=== PATIENT | female | born 1950 | race Caucasian/White ===

== ENCOUNTER → 2016-12-10 | Outpatient (CLI) | payer BC ==
[~2016-12-10] MED LIST: DARVOCET N 1001 TAB PO; FAMILY PHARMAC0.4 MG PO; HYDROCHLOROTHIA25 MG PO; HYDROCODONE; MOTRIN800 MG PO; NEURONTIN400 MG PO; NEURONTIN600 MG PO; NEURONTIN800 MG PO; PRILOSEC20 MG PO; ROBAXIN750 MG PO; SYNTHROID0.025 MG PO; VOLTAREN50 M1 PO
[2016-12-10 13:51] LABS: HEMATOCRIT 43.3 % (37.0-47.0); HEMOGLOBIN 14.6 g/dl (12.0-16.0); MEAN CELL VOLUME 105.6 fl (81.0-99.0); MEAN CORPUSCULAR HGB 35.6 pg (27.0-31.0); MEAN CORPUSCULAR HGB CONC 33.7 g/dl (33.0-37.0); RED BLOOD COUNT 4.1 10*6/uL (4.10-5.10); RED CELL DISTRI WIDTH 12.7 % (0-14.5); WHITE BLOOD COUNT 5.6 10*3/uL (4.8-10.8)
[2016-12-10 14:14] LABS: ALBUMIN 3.7 gm/dl (3.1-4.5); BILIRUBIN, TOTAL 0.4 mg/dl (0.2-1.0); BUN 8 mg/dl (7-24); CARBON DIOXIDE 27 mmol/L (21-32); CHLORIDE 100 mmol/L (98-107); CHOLESTEROL 227 mg/dL (<200); EST GLOM FILT AFRICAN AMERICAN > 60 ml/min; GLUCOSE 97 mg/dL (65-99); HDL CHOLESTEROL 44 mg/dl (40-60); LDL CHOLESTEROL 115 mg/dL (9-159); POTASSIUM 3.6 mmol/L (3.5-5.1); SGOT/AST 32 IU/L (3-35); SGPT/ALT 21 U/L (12-78); SODIUM 136 mmol/L (136-145); TOTAL PROTEIN 8.7 gm/dL (6.4-8.2); TRIGLYCERIDES 341 mg/dl (<150); VLDL CHOLESTEROL 68 mg/dL (6-40)
[2016-12-10 14:15] LABS: ALKALINE PHOSPHATASE 88 U/L (45-117)
== END | disposition home or self-care (01) ==
LOC: LAB 13:07 → US 13:07
PROVIDERS: Family Medicine
DX: J44.9 Chronic obstructive pulmonary disease, unspecified (principal); I51.7 Cardiomegaly; E55.9 Vitamin D deficiency, unspecified; E78.00 Pure hypercholesterolemia, unspecified; R53.83 Other fatigue; J40 Bronchitis, not specified as acute or chronic; R60.0 Localized edema; R91.8 Other nonspecific abnormal finding of lung field; Q25.46 Tortuous aortic arch; J90 Pleural effusion, not elsewhere classified

== ENCOUNTER → 2016-12-26 | Outpatient (CLI) | payer BC | END | disposition home or self-care (01) | LOC: RAD 16:24 | DX: J18.9 Pneumonia, unspecified organism (principal); R05 Cough ==

== ENCOUNTER 2017-02-21 09:45 | Emergency (ER) | payer BC ==
[~2017-02-21] VITALS: Wt 77.1 kg
[2017-02-21 09:54] VITALS: BP 145/79
[2017-02-21] MEDS ORDERED: GABAPENTIN600 MG PO (09:58)
[2017-02-21] MEDS ORDERED: PAMELOR50 MG PO (09:59)
[2017-02-21] MEDS ORDERED: CEPHALEXIN500 M1 PO (12:03)
[2017-02-21] MEDS ORDERED: BACTRIM DS 8001 TA1 PO (12:03)
== END 2017-02-21 12:35 | disposition home or self-care (01) ==
LOC: ED 09:45
DX: S91.109A Unspecified open wound of unspecified toe(s) without damage to nail, initial encounter (principal); L03.115 Cellulitis of right lower limb; Z79.899 Other long term (current) drug therapy; X58.XXXA Exposure to other specified factors, initial encounter; Y93.89 Activity, other specified; Y92.9 Unspecified place or not applicable; Y99.9 Unspecified external cause status

== ENCOUNTER → 2017-02-26 | Outpatient (CLI) | payer BC ==
[~2017-02-26] MED LIST changes: +BACTRIM DS 8001 TA1 PO; +CEPHALEXIN500 M1 PO; +GABAPENTIN600 MG PO; +PAMELOR50 MG PO
== END ==
LOC: WOUNDCARE 04:16
DX: L97.512 Non-pressure chronic ulcer of other part of right foot with fat layer exposed (principal); G62.9 Polyneuropathy, unspecified

== ENCOUNTER → 2017-02-26 | Outpatient (CLI) | payer BC ==
[2017-02-26 09:58] LABS: BASO # 0.1 10*3/uL (0.0-0.1); BASO % 1.1 % (0.0-1.0); EOS # 0.2 10*3/uL (0.0-0.4); EOS % 2.8 % (1.0-4.0); HEMOGLOBIN 12.5 g/dl (12.0-16.0); LYMPH # 1.9 10*3/uL (1.3-4.4); LYMPH % 35.6 % (27.0-41.0); MEAN CELL VOLUME 107.9 fl (81.0-99.0); MEAN CORPUSCULAR HGB 36.4 pg (27.0-31.0); MEAN CORPUSCULAR HGB CONC 33.8 g/dl (33.0-37.0); MEAN PLATELET VOLUME 8.9 fl (9.6-12.3); MONO # 0.5 10*3/uL (0.1-1.0); MONO % 9.8 % (3.0-9.0); NEUT # 2.7 10*3/uL (2.3-7.9); NEUT % 50.3 % (47.0-73.0); NUCLEATED RED BLOOD CELL 0.1 10*3/uL (0.0-0.0); NUCLEATED RED BLOOD CELL 0.9 % (0.0-0.0); PLATELET COUNT AUTOMATED 178 10*3/uL (130-400); RED BLOOD COUNT 3.43 10*6/uL (4.10-5.10); RED CELL DISTRI WIDTH 15.4 % (0-14.5); WHITE BLOOD COUNT 5.3 10*3/uL (4.8-10.8)
[2017-02-26 10:27] LABS: ALBUMIN 3.9 gm/dl (3.1-4.5); ALKALINE PHOSPHATASE 76 U/L (45-117); BILIRUBIN, TOTAL 1.3 mg/dl (0.2-1.0); BUN 9 mg/dl (7-24); CARBON DIOXIDE 26 mmol/L (21-32); CHLORIDE 102 mmol/L (98-107); EST GLOM FILT AFRICAN AMERICAN > 60 ml/min; GLUCOSE 106 mg/dL (65-99); POTASSIUM 4.2 mmol/L (3.5-5.1); SGOT/AST 34 IU/L (3-35); SGPT/ALT 22 U/L (12-78); SODIUM 137 mmol/L (136-145); TOTAL PROTEIN 8.3 gm/dL (6.4-8.2)
[2017-02-26 10:36] LABS: HEMOGLOBIN A1c 5.2 % (4.8-5.6)
== END | disposition home or self-care (01) ==
LOC: LAB 09:38
PROVIDERS: Podiatrist Foot & Ankle Surgery
DX: L97.514 Non-pressure chronic ulcer of other part of right foot with necrosis of bone (principal); R73.09 Other abnormal glucose

== ENCOUNTER → 2017-03-06 | Outpatient (CLI) | payer BC | END | disposition home or self-care (01) | LOC: US 12:19 | DX: S91.104A Unspecified open wound of right lesser toe(s) without damage to nail, initial encounter (principal); I73.9 Peripheral vascular disease, unspecified; X58.XXXA Exposure to other specified factors, initial encounter; Y93.89 Activity, other specified; Y92.89 Other specified places as the place of occurrence of the external cause; Y99.8 Other external cause status ==

== ENCOUNTER → 2017-03-12 | Outpatient (CLI) | payer BC ==
--- NOTE | ~2017-03-12 | PR ---
[place], [place] PROGRESS NOTE NAME: LIBERTAD BALDERAS [facility] #: [id number] UNIT #: [id number] ROOM: DOCTOR: PETAR ArreolaBETITO BIRTHDATE: [birth year] DOS: 03/12/2017 SUBJECTIVE: The patient was seen for the first time 2 weeks ago, she had been referred to us for a chronic ulcer of the second digit of the right foot on the dorsal aspect. She apparently had a wound secondary to rubbing from her steel-toed boots. The blister broke and eventually causing an open wound that was draining yellow drainage and had some sign of cellulitis. She was seen for the first time 2 weeks ago, the wound looked pretty clean at that time, she had been on antibiotics; however, the toe was erythematous and swollen when she did see us last time. She was asked to use Aquacel Ag Rope as well as a 2 x 2 tubular netting over the area, had arterial Dopplers done, which were unremarkable. She comes in today without any specific complaints. She normally wears her tennis shoes. She has not used her steel toed boots at work since we gave her a prescription regarding not wearing those specific shoes while she is at work. She comes in without any specific complaints. She has not noticed any fevers or chills. There is no change in drainage. She does not complain of any significant amount of pain. The wound itself is looking smaller at 0.1 x 0.3 x 0.2, however, there does seem to be more callus around it and there is some area of undermining starting at the 12 o'clock position to the 1 o'clock position, maximum depth of 0.2. The toe itself still appears moderately swollen in comparison to the rest of her toes that it is slightly erythematous as well. She has been off the antibiotics for a while now. A selective debridement was done due to the callus undermined area. This was debrided with forceps and scissors. There was minimal bleeding that was controlled with pressure. Post-debridement measurements are 0.3 x 0.4 x 0.2. The patient tolerated the debridement well. Cetacaine spray was used for topical anesthesia. ASSESSMENT AND PLAN: Chronic ulcer of her right foot. Overall, the wound is still getting smaller; however, I am concerned about the callus around the area. I believe that she is still having problems with footwear providing adequate space for her toes. 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 Her tennis shoes appear to be rather narrow in the front and do not have a big toe space, so I had recommended for her to try and see if she has any other shoes that have more room for accommodation of her toes, we will give her postop shoe today and a bulky dressing. We will use Bactroban ointment and a collagen as well and discontinued on Aquacel Ag. She said she will look around and see what other shoes she has at home. She is not diabetic. It may be difficult for us to get another type of offloading device for her. Her arterial ultrasounds were good and she should have adequate blood flow to heal the wound. It does appear to be still some cellulitis noted, I would like to continue with the Bactrim for another 2 weeks and have her follow up next week in the Wound Clinic of the wound. Continues to stall and there still sign of inflammation, we may want to consider doing an MRI or a bone scan. Followup is in one week. [place], [place] PROGRESS NOTE NAME: LIBERTAD BALDERAS [place] UNIT #: [id number] ROOM: DOCTOR: BETITO DAVEY M.D. BIRTHDATE: [birth year] BETITO DAVEY MD CM:PNTRANS [id number] BETITO DAVEY M.D. 03/12/17 1517 interface
== END ==
LOC: WOUNDCARE 02:28
DX: L97.512 Non-pressure chronic ulcer of other part of right foot with fat layer exposed (principal); L84 Corns and callosities

== ENCOUNTER → 2017-03-19 | Outpatient (CLI) | payer BC ==
--- NOTE | ~2017-03-19 | PR ---
[place], [place] PROGRESS NOTE NAME: LIBERTAD BALDERAS [facility] #: [id number] UNIT #: [id number] ROOM: DOCTOR: PETAR ArreolaBETITO BIRTHDATE: [birth year] DOS: 03/19/2017 CHIEF COMPLAINT: Chronic ulcer of the right second toe. HISTORY OF PRESENT ILLNESS: This is a 66-year-old female with a history of neuropathy, nondiabetic, who has been following up in the Wound Clinic for a chronic ulcer of the right second toe that started out secondary to work-related footwear. There was some associated cellulitis when she presented to the ER and subsequently presented here at the Wound Clinic. She was treated with antibiotics, culture grew skin scooter. She has been following up in the Wound Clinic for 3 weeks now with no specific complaints today. We changed her to a collagen and Bactroban last week, gave her a postop shoe to wear when she is not at work. She otherwise has been wearing her regular tennis shoes at work and then she does apply a protective outer covering when she is at work. No fevers or chills are noted. She was given an extra weeks' worth of antibiotics last week, Bactrim, and she has been utilizing this without any specific complaints. There is very little drainage coming from the wound at the present time. No fevers, chills, or pain. PHYSICAL EXAMINATION: VITAL SIGNS: Temperature is 98, pulse is 92, respirations 18, and blood pressure is 138/78. WOUND: The wound is measuring 0.2 x 0.3 x 0.2. There is a little bit of undermining noted at the 6 o'clock position of maximum depth of 0.2, but overall the swelling definitely seems to have improved. There is really very minimal erythema present and it is not tender. There is no purulence or odor noted. There is very minimal callus at this point noted. Debridement was done. This is a selective debridement only. The tissue removed was just some fibrin and slough. There is very minimal bleeding. Instrument utilized was a curette. The patient tolerated the debridement well. Post-debridement measurements are 0.3 x 0.5 x 0.2. ASSESSMENT AND PLAN: Chronic ulcer of the right second toe dorsal aspect. The wound does appear to be gradually getting smaller. It does not appear to be as deep as when she first presented. The swelling seems to have gone down as well. We will hold off on obtaining an MRI at this point, I discussed with the patient that she would like to wait a little bit longer before going and obtaining it. It does appear that the wound is getting smaller gradually, so we will continue wound care with collagen and Bactroban. I did apply mole skin around the ulcer to see if we could help offload the area a little bit more. Follow up in 1 week. [place], [place] PROGRESS NOTE NAME: LIBERTAD BALDERAS UNIT #: [id number] ROOM: DOCTOR: BETITO DAVEY M.D. BIRTHDATE: [birth year] BETITO DAVEY MD CM:TAD [id number] BETITO DAVEY M.D. 03/20/17 0813 interface
== END | disposition home or self-care (01) ==
LOC: WOUNDCARE 03:20
DX: L97.512 Non-pressure chronic ulcer of other part of right foot with fat layer exposed (principal); G62.9 Polyneuropathy, unspecified

== ENCOUNTER → 2017-03-26 | Outpatient (CLI) | payer BC ==
--- NOTE | ~2017-03-26 | PR ---
[place], [place] PROGRESS NOTE NAME: LIBERTAD BALDERAS [facility] #: [id number] UNIT #: [id number] ROOM: DOCTOR: PETAR ArreolaBETITO BIRTHDATE: [birth year] DOS: 03/26/2017 CHIEF COMPLAINT: Followup of chronic ulcer of the right second toe. SUBJECTIVE: A 67-year-old female with neuropathy who is not diabetic. She has been coming to the Wound Clinic for 4 weeks now for an ulcer of the right second toe, it is located on the dorsal aspect. 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 There has been associated swelling and redness with the wound. She states that the ulcer started after wearing her work shoes, she is to wear steel toed work shoes. In any case, she has been coming to the Wound Clinic now for 4 weeks. The wound has been gradually improving, but has been very slow to heal. She comes in without any specific complaints. The wound is very small and has not been draining much at all. PHYSICAL EXAMINATION: The measurements are 0.2 x 0.4 x 0.2. The wound essentially looks the same as it did last week. There is no undermining noted; however, last week there was some definite undermining seen. There is really less erythema and swelling than when she first presented. There is no purulence or odor. A selective debridement was done just to remove fibrin and slough from the base of the wound. Once again, I did not see any undermining. A curette was utilized. There was minimal bleeding that was controlled with pressure. Post-debridement measurements are unchanged. ASSESSMENT AND PLAN: Chronic ulcer of the right second toe, very slow progress, but overall appearance of the wound and the toe does appear improved. We will continue with collagen, we can discontinue with the Bactroban. She unfortunately does not have any further time to come back to the Wound Clinic. She is going to have to go to her [facility] for followup as our office is closed during the times when she can get off of work, so she will have to follow back up with Podiatry for further care. We did apply a small felt offloading mole skin to the area. Last week, she said that stayed on pretty well and did not cause any problems, so that was reapplied today to help with offloading and patting the area a little bit. I did also advise her to speak with Podiatry about shoes that may give her more increased depth for the toes. The patient will likely follow up with her [facility]. [place], [place] PROGRESS NOTE NAME: LIBERTAD BALDERAS UNIT #: [id number] ROOM: DOCTOR: BETITO DAVEY M.D. BIRTHDATE: [birth year] BETITO DAVEY MD CM:TAD [id number] BETITO DAVEY M.D. 03/28/17 0746 interface
== END | disposition home or self-care (01) ==
LOC: WOUNDCARE 04:50
DX: L97.512 Non-pressure chronic ulcer of other part of right foot with fat layer exposed (principal)

== ENCOUNTER → 2017-05-03 | Outpatient (CLI) | payer BC ==
[2017-05-03 09:01] LABS: HEMOGLOBIN 12.3 g/dl (12.0-16.0); MEAN CELL VOLUME 111.5 fl (81.0-99.0); MEAN CORPUSCULAR HGB 38.1 pg (27.0-31.0); MEAN CORPUSCULAR HGB CONC 34.2 g/dl (33.0-37.0); MEAN PLATELET VOLUME 9.5 fl (9.6-12.3); NUCLEATED RED BLOOD CELL 0.1 10*3/uL (0.0-0.0); RED BLOOD COUNT 3.23 10*6/uL (4.10-5.10); RED CELL DISTRI WIDTH 14.6 % (0-14.5); WHITE BLOOD COUNT 5.3 10*3/uL (4.8-10.8)
[2017-05-03 09:26] LABS: ALBUMIN 3.9 gm/dl (3.1-4.5); BUN 12 mg/dl (7-24); CHLORIDE 103 mmol/L (98-107); CHOLESTEROL 189 mg/dL (<200); CREATININE 0.87 mg/dL (0.55-1.02); HDL CHOLESTEROL 41 mg/dl (40-60); LDL CHOLESTEROL 104 mg/dL (9-159); POTASSIUM 3.6 mmol/L (3.5-5.1); SGOT/AST 45 IU/L (3-35); SGPT/ALT 24 U/L (12-78); SODIUM 137 mmol/L (136-145); TOTAL PROTEIN 8.1 gm/dL (6.4-8.2); TRIGLYCERIDES 218 mg/dl (<150); VLDL CHOLESTEROL 44 mg/dL (6-40)
[2017-05-03 09:35] LABS: ALKALINE PHOSPHATASE 78 U/L (45-117)
== END | disposition home or self-care (01) ==
LOC: LAB 08:38
PROVIDERS: Family Medicine
DX: I10 Essential (primary) hypertension (principal); E78.00 Pure hypercholesterolemia, unspecified; R53.83 Other fatigue; E55.9 Vitamin D deficiency, unspecified

== ENCOUNTER → 2017-11-13 | Outpatient (CLI) | payer BC | END | disposition home or self-care (01) | LOC: US 09:16 | DX: K76.0 Fatty (change of) liver, not elsewhere classified (principal); M50.323 Other cervical disc degeneration at C6-C7 level; M47.892 Other spondylosis, cervical region ==

== ENCOUNTER → 2017-12-02 | Outpatient (CLI) | payer BC | END | disposition home or self-care (01) | LOC: NM 07:00 | DX: R10.11 Right upper quadrant pain (principal) ==

== ENCOUNTER 2018-02-19 18:32 | Emergency (ER) | payer BC ==
[~2018-02-19] VITALS: Ht 170.1 cm; Wt 82.6 kg
[2018-02-19 20:16] VITALS: BP 146/76
[2018-02-19] MEDS ORDERED: MEDROL DOSEPAK4 MG PO (20:50)
== END 2018-02-19 21:25 | disposition home or self-care (01) ==
LOC: ED 18:32
DX: M10.9 Gout, unspecified (principal); G62.9 Polyneuropathy, unspecified; Z79.899 Other long term (current) drug therapy

== ENCOUNTER → 2018-03-13 | Outpatient (CLI) | payer BC ==
[~2018-03-13] MED LIST changes: +MEDROL DOSEPAK4 MG PO
== END | disposition home or self-care (01) ==
LOC: US 11:14
DX: R60.0 Localized edema (principal)

== ENCOUNTER → 2019-03-12 | Outpatient (CLI) | payer OTHER ==
[~2019-03-12] MED LIST changes: +ASPIRIN81 M1 PO; +NORCO 5-325 TA1 EACH PO; +PRILOSEC20 M1 PO; +ZYLOPRIM300 MG PO
[2019-03-12 10:28] LABS: HEMATOCRIT 35.7 % (37.0-47.0); HEMOGLOBIN 12.2 g/dl (12.0-16.0); MEAN CELL VOLUME 106.6 fl (81.0-99.0); MEAN CORPUSCULAR HGB 36.4 pg (27.0-31.0); MEAN CORPUSCULAR HGB CONC 34.2 g/dl (33.0-37.0); MEAN PLATELET VOLUME 9.5 fl (9.6-12.3); RED BLOOD COUNT 3.35 10*6/uL (4.10-5.10); RED CELL DISTRI WIDTH 15.1 % (0-14.5)
[2019-03-12 10:55] LABS: ALBUMIN 3.2 gm/dl (3.1-4.5); ALKALINE PHOSPHATASE 139 U/L (45-117); BUN 2 mg/dl (7-24); CHLORIDE 94 mmol/L (98-107); CREATININE 0.63 mg/dL (0.55-1.02); POTASSIUM 4.2 mmol/L (3.5-5.1); SGOT/AST 49 IU/L (3-35); SGPT/ALT 30 U/L (12-78); SODIUM 130 mmol/L (136-145)
== END | disposition home or self-care (01) ==
LOC: LAB 09:49
PROVIDERS: Family Medicine
DX: Z01.818 Encounter for other preprocedural examination (principal); K21.9 Gastro-esophageal reflux disease without esophagitis; M25.579 Pain in unspecified ankle and joints of unspecified foot; G62.9 Polyneuropathy, unspecified

== ENCOUNTER → 2019-03-24 | Outpatient (CLI) | payer OTHER ==
--- NOTE | ~2019-03-24 | ST ---
[place], [place] EXERCISE STRESS TEST REPORT [id number] UN[facility] #: [id number] ROOM: DOCTOR: ORIANA OLMEDO MD BIRTHDATE: [birth year] DOS: 03/24/2019 LEXISCAN PORTION OF THE LEXISCAN CARDIOLITE Baseline cardiogram, sinus with T-wave inversions in anterior leads V1, V2, and V3, 0.4 mg Lexiscan, duration of 10 seconds. With Lexiscan, the patient had no chest discomfort. There were no new EKG changes. Blood pressure and heart rate response was normal. FINAL IMPRESSION: No new EKG changes with Lexiscan. No chest pain with Lexiscan. No dysrhythmia with Lexiscan. Blood pressure and heart rate response was normal. Nuclear images will be reported separately. ORIANA OLMEDO MD CM:STRESS:EXERCISE STRESS TEST REPORT [id number] ORIANA OLMEDO MD
--- NOTE | 2019-03-24 07:30 | NUR ---
INFORMED CONSNET SIGNED FOR LEXISCAN STRESS TEST WITH DR. OLMEDO. RESTING EKG NSR, HR 76, BP 110/60. PULSE OX 100% AND LUNGS CLEAR BILATERALLY. COMPLETED ONE MINUTE OF LEXISCAN PROTOCOL RECEIVING LEXISCAN O.4MG OVER 10 SECONDS. NO ARRYTHMIAS NOTED AND NO NEW ST CHANGES PRESENT. PT C/O ODD FEELING. LAST RECOVERY HR 89, BP 108/50. WAITING FOR NUCLEAR SCANNING IN STABLE CONDITION.
== END | disposition home or self-care (01) ==
LOC: CARD 00:20
DX: R94.31 Abnormal electrocardiogram [ECG] [EKG] (principal); R53.81 Other malaise

== ENCOUNTER 2019-04-27 03:12 | Emergency (ER) | payer OTHER ==
[~2019-04-27] VITALS: Ht 167.6 cm; Wt 81.6 kg
[2019-04-27 03:12] VITALS: BP 142/65
== END 2019-04-27 03:35 | disposition home or self-care (01) ==
LOC: ED 03:12
DX: Z48.01 Encounter for change or removal of surgical wound dressing (principal); M10.072 Idiopathic gout, left ankle and foot; Z79.899 Other long term (current) drug therapy; Z79.82 Long term (current) use of aspirin

== ENCOUNTER → 2019-05-19 | Outpatient (CLI) | payer OTHER ==
[2019-05-19 09:18] LABS: HEMATOCRIT 41.7 % (37.0-47.0); HEMOGLOBIN 13.4 g/dl (12.0-16.0); MEAN CELL VOLUME 104.3 fl (81.0-99.0); MEAN CORPUSCULAR HGB 33.5 pg (27.0-31.0); MEAN CORPUSCULAR HGB CONC 32.1 g/dl (33.0-37.0); MEAN PLATELET VOLUME 9.3 fl (9.6-12.3); RED CELL DISTRI WIDTH 13.2 % (0-14.5); WHITE BLOOD COUNT 4.1 10*3/uL (4.8-10.8)
[2019-05-19 09:47] LABS: ALBUMIN 3.2 gm/dl (3.1-4.5); ALKALINE PHOSPHATASE 163 U/L (45-117); BUN 6 mg/dl (7-24); CHLORIDE 104 mmol/L (98-107); CHOLESTEROL 153 mg/dL (<200); CREATININE 0.85 mg/dL (0.55-1.02); HDL CHOLESTEROL 35 mg/dl (40-60); LDL CHOLESTEROL 96 mg/dL (9-159); POTASSIUM 3.9 mmol/L (3.5-5.1); SGOT/AST 27 IU/L (3-35); SGPT/ALT 16 U/L (12-78); SODIUM 138 mmol/L (136-145); TOTAL PROTEIN 7.9 gm/dL (6.4-8.2); TRIGLYCERIDES 111 mg/dl (<150); VLDL CHOLESTEROL 22 mg/dL (6-40)
== END | disposition home or self-care (01) ==
LOC: LAB 08:02
PROVIDERS: Family Medicine
DX: M25.572 Pain in left ankle and joints of left foot (principal); E55.9 Vitamin D deficiency, unspecified; K21.9 Gastro-esophageal reflux disease without esophagitis; E78.00 Pure hypercholesterolemia, unspecified; G62.9 Polyneuropathy, unspecified

== ENCOUNTER → 2020-07-16 | Outpatient (CLI) | payer OTHER | END | disposition home or self-care (01) | LOC: COVID19 10:07 | PROVIDERS: ATTEND Family Medicine | DX: Z20.828 Contact with and (suspected) exposure to other viral communicable diseases (principal) ==

== ENCOUNTER → 2021-05-27 | Outpatient (CLI) | payer OTHER ==
[2021-05-27 14:18] LABS: HEMATOCRIT 35.3 % (37.0-47.0); MEAN CELL VOLUME 98.3 fl (81.0-99.0); MEAN CORPUSCULAR HGB CONC 34.6 g/dl (33.0-37.0); MEAN PLATELET VOLUME 9.4 fl (9.6-12.3); RED BLOOD COUNT 3.59 10*6/uL (4.10-5.10); RED CELL DISTRI WIDTH 12.5 % (0-14.5); WHITE BLOOD COUNT 4.3 10*3/uL (4.8-10.8)
[2021-05-27 14:34] LABS: ALBUMIN 3.5 gm/dl (3.1-4.5); ALKALINE PHOSPHATASE 79 U/L (45-117); BUN 7 mg/dl (7-24); CHLORIDE 97 mmol/L (98-107); CREATININE 0.57 mg/dL (0.55-1.02); POTASSIUM 3.3 mmol/L (3.5-5.1); SGOT/AST 40 IU/L (3-35); SGPT/ALT 31 U/L (12-78); SODIUM 133 mmol/L (136-145); TOTAL PROTEIN 7.4 gm/dL (6.4-8.2)
[2021-05-27 14:36] LABS: FREE T4 0.73 ng/dl (0.76-1.46)
[2021-05-27 14:41] LABS: THYROID STIM HORMONE (HS) 2.15 uIU/ml (0.358-4.75)
[2021-05-28 07:05] LABS: TOTAL PROTEIN, SERUM 7.2 g/dL (6.0-8.5)
[2021-05-28 09:06] LABS: IMMUNOGLOBULIN G, QNT 1677 mg/dL (586-1602); IMMUNOGLOBULIN M, QNT 168 mg/dL (26-217)
[2021-05-29 14:07] LABS: t-TRANSGLUTAMINASE (tTG) IGA <2 U/mL (0-3); t-TRANSGLUTAMINASE (tTG) IgG <2 U/mL (0-5)
[2021-05-29 15:06] LABS: A/G RATIO 0.9 (0.7-1.7); ALBUMIN 3.5 g/dL (2.9-4.4); ALPHA-1-GLOBULIN 0.2 g/dL (0.0-0.4); ALPHA-2-GLOBULIN 0.7 g/dL (0.4-1.0); GAMMA GLOBULIN 1.8 g/dL (0.4-1.8); GLOBULIN, TOTAL 3.7 g/dL (2.2-3.9); M-SPIKE Not Observed g/dL (Not Observed)
[2021-05-29 17:06] LABS: ENDOMYSIAL ANTIBODY IgA Negative (Negative)
[2021-05-31 13:07] LABS: METHYLMALONIC ACID 128 nmol/L (0-378)
== END | disposition home or self-care (01) ==
LOC: LAB 13:13
PROVIDERS: Family Medicine; ATTEND Psychiatry & Neurology Neurology
DX: G60.9 Hereditary and idiopathic neuropathy, unspecified (principal); K90.9 Intestinal malabsorption, unspecified; E53.8 Deficiency of other specified B group vitamins; E78.00 Pure hypercholesterolemia, unspecified; E55.9 Vitamin D deficiency, unspecified; R53.83 Other fatigue; D64.9 Anemia, unspecified; R10.9 Unspecified abdominal pain; G62.9 Polyneuropathy, unspecified

== ENCOUNTER → 2022-02-20 | Outpatient (CLI) | payer OTHER ==
[2022-02-20 09:26] LABS: MEAN CELL VOLUME 103.3 fl (81.0-99.0); MEAN CORPUSCULAR HGB 35.1 pg (27.0-31.0); MEAN CORPUSCULAR HGB CONC 33.9 g/dl (33.0-37.0); MEAN PLATELET VOLUME 9.1 fl (9.6-12.3); RED BLOOD COUNT 3.68 10*6/uL (4.10-5.10); RED CELL DISTRI WIDTH 11.9 % (0-14.5); WHITE BLOOD COUNT 3.9 10*3/uL (4.8-10.8)
[2022-02-20 09:48] LABS: BUN 5 mg/dl (7-24); CHLORIDE 104 mmol/L (98-107); SODIUM 135 mmol/L (136-145)
[2022-02-20 09:51] LABS: ALKALINE PHOSPHATASE 80 U/L (45-117); CHOLESTEROL 193 mg/dL (<200); CREATININE 0.69 mg/dL (0.55-1.02); LDL CHOLESTEROL 103 mg/dL (9-159); SGOT/AST 55 IU/L (3-35); SGPT/ALT 31 U/L (12-78); TOTAL PROTEIN 7.9 gm/dL (6.4-8.2); TRIGLYCERIDES 261 mg/dl (<150); URIC ACID 4.6 mg/dL (2.6-6.0)
[2022-02-20 10:18] LABS: VITAMIN D, 25-HYDROXY 43.9 ng/mL (30-100)
== END | disposition home or self-care (01) ==
LOC: LAB 08:52
PROVIDERS: ATTEND Family Medicine
DX: M17.31 Unilateral post-traumatic osteoarthritis, right knee (principal); M10.9 Gout, unspecified; R22.41 Localized swelling, mass and lump, right lower limb; E55.9 Vitamin D deficiency, unspecified; E78.00 Pure hypercholesterolemia, unspecified; K21.9 Gastro-esophageal reflux disease without esophagitis; E87.6 Hypokalemia

== ENCOUNTER → 2022-05-01 | Outpatient (CLI) | payer OTHER ==
[2022-05-01 08:47] LABS: HEMATOCRIT 37.5 % (37.0-47.0); MEAN CELL VOLUME 102.7 fl (81.0-99.0); MEAN CORPUSCULAR HGB 34.2 pg (27.0-31.0); MEAN CORPUSCULAR HGB CONC 33.3 g/dl (33.0-37.0); MEAN PLATELET VOLUME 8.9 fl (9.6-12.3); RED BLOOD COUNT 3.65 10*6/uL (4.10-5.10); RED CELL DISTRI WIDTH 12.3 % (0-14.5); WHITE BLOOD COUNT 3.7 10*3/uL (4.8-10.8)
[2022-05-01 10:02] LABS: FREE T4 0.7 ng/dl (0.76-1.46); THYROID STIM HORMONE (HS) 2.25 uIU/ml (0.358-4.75)
== END | disposition home or self-care (01) ==
LOC: LAB 08:24
PROVIDERS: ATTEND Family Medicine
DX: D72.829 Elevated white blood cell count, unspecified (principal); R94.6 Abnormal results of thyroid function studies

== ENCOUNTER → 2022-11-30 | Outpatient (CLI) | payer OTHER ==
[~2022-11-30] MED LIST changes: +FLUCONAZOLE100 MG PO; +FUROSEMIDE40 MG PO; +HYDROCHLOROTHIA25 M1 PO; +MAGNESIUM OXID400 MG PO; +MIRTAZAPINE30 M2 PO; +NYSTATIN1 EAC3 MC
[2022-11-30 09:03] LABS: HEMATOCRIT 33.9 % (37.0-47.0); MEAN CELL VOLUME 102.4 fl (81.0-99.0); MEAN CORPUSCULAR HGB 33.5 pg (27.0-31.0); MEAN CORPUSCULAR HGB CONC 32.7 g/dl (33.0-37.0); MEAN PLATELET VOLUME 8.6 fl (9.6-12.3); PLATELET COUNT AUTOMATED 210 10*3/uL (130-400); RED BLOOD COUNT 3.31 10*6/uL (4.10-5.10); RED CELL DISTRI WIDTH 13.9 % (0-14.5); WHITE BLOOD COUNT 3.1 10*3/uL (4.8-10.8)
[2022-11-30 09:05] LABS: MANUAL DIFF REFLEX YES
[2022-11-30 09:32] LABS: TOTAL CELLS COUNTED 100 #CELLS
[2022-11-30 09:40] LABS: PLATELET SUFFICIENCY NORMAL (NORMAL); POLYCHROMASIA SLIGHT
[2022-11-30 09:41] LABS: TARGET CELLS FEW
[2022-11-30 09:46] LABS: ALKALINE PHOSPHATASE 83 U/L (46-116); BUN 6 mg/dl (9-23); CHLORIDE 104 mmol/L (98-107); POTASSIUM 3.2 mmol/L (3.4-5.1); SGPT/ALT 9 U/L (10-49)
[2022-11-30 09:47] LABS: CHOLESTEROL 193 mg/dL (<200); CPK 81 U/L (34-171); LDL CHOLESTEROL 122 mg/dL (9-159); TRIGLYCERIDES 117 mg/dl (<150)
[2022-11-30 10:14] LABS: VITAMIN D, 25-HYDROXY 57.8 ng/mL (30-100)
== END | disposition home or self-care (01) ==
LOC: LAB 08:28
PROVIDERS: Family Medicine; ATTEND Internal Medicine Infectious Disease
DX: I10 Essential (primary) hypertension (principal); K21.9 Gastro-esophageal reflux disease without esophagitis; E55.9 Vitamin D deficiency, unspecified; D72.829 Elevated white blood cell count, unspecified; D64.9 Anemia, unspecified; L03.90 Cellulitis, unspecified

== ENCOUNTER 2022-12-02 07:38 | Emergency (ER) | payer OTHER ==
[~2022-12-02] VITALS: Ht 170.1 cm; Wt 83.5 kg
[~2022-12-02 07:38] MED LIST changes: -FLUCONAZOLE100 MG PO; -NYSTATIN1 EAC3 MC
[2022-12-02 07:50] VITALS: BP 137/95
[2022-12-02] MEDS ORDERED: NYSTATIN1 EAC3 MC (08:15)
[2022-12-02] MEDS ORDERED: FLUCONAZOLE100 MG PO (08:15)
== END 2022-12-02 08:25 | disposition home or self-care (01) ==
LOC: ED 07:38
DX: L30.4 Erythema intertrigo (principal); M10.9 Gout, unspecified; G62.9 Polyneuropathy, unspecified; K21.9 Gastro-esophageal reflux disease without esophagitis; Z98.890 Other specified postprocedural states

== ENCOUNTER → 2022-12-03 | Outpatient (CLI) | payer OTHER ==
[~2022-12-03] MED LIST changes: +FLUCONAZOLE100 MG PO; +NYSTATIN1 EAC3 MC
== END | disposition home or self-care (01) ==
LOC: RAD 11:46
PROVIDERS: ATTEND Orthopaedic Surgery
DX: M25.571 Pain in right ankle and joints of right foot (principal); M79.89 Other specified soft tissue disorders

== ENCOUNTER → 2022-12-18 | Outpatient (CLI) | payer OTHER | END | disposition home or self-care (01) | LOC: LAB 08:25 | PROVIDERS: ATTEND Internal Medicine Infectious Disease | DX: M00.9 Pyogenic arthritis, unspecified (principal); R78.81 Bacteremia ==

== ENCOUNTER → 2023-01-09 | Outpatient (CLI) | payer OTHER | END | disposition home or self-care (01) | LOC: ORTHO 02:33 | PROVIDERS: ATTEND Orthopaedic Surgery | DX: M19.071 Primary osteoarthritis, right ankle and foot (principal); R22.42 Localized swelling, mass and lump, left lower limb ==

== ENCOUNTER → 2023-02-04 | Outpatient (CLI) | payer OTHER | END | disposition home or self-care (01) | LOC: ORTHO 02:31 | PROVIDERS: ATTEND Orthopaedic Surgery | DX: M14.671 Charcot's joint, right ankle and foot (principal) ==

== ENCOUNTER → 2023-03-11 | Outpatient (CLI) | payer OTHER | END | disposition home or self-care (01) | LOC: LAB 08:03 | PROVIDERS: ATTEND Internal Medicine Infectious Disease | DX: R78.81 Bacteremia (principal) ==

== ENCOUNTER 2023-05-16 16:54 | Emergency (ER) | payer OTHER ==
[~2023-05-16] VITALS: Ht 170.1 cm; Wt 82.6 kg
[2023-05-16 17:18] VITALS: BP 153/65
[2023-05-16] MEDS ORDERED: ALLOPURINOL100 MG PO (17:22)
[2023-05-16] MEDS ORDERED: HYDROCHLOROTHIA25 M1 PO (17:22)
[2023-05-16] MEDS ORDERED: CELECOXIB100 M1 PO (17:23)
[2023-05-16 19:31] LABS: BASO % 0.5 % (0.0-1.0); EOS # 0.1 10*3/uL (0.0-0.4); EOS % 1.3 % (1.0-4.0); HEMATOCRIT 33.2 % (37.0-47.0); LYMPH # 1.8 10*3/uL (1.3-4.4); LYMPH % 20.3 % (27.0-41.0); MEAN CELL VOLUME 101.5 fl (81.0-99.0); MEAN CORPUSCULAR HGB 33.3 pg (27.0-31.0); MEAN CORPUSCULAR HGB CONC 32.8 g/dl (33.0-37.0); MEAN PLATELET VOLUME 8.6 fl (9.6-12.3); MONO % 11.6 % (3.0-9.0); NEUT # 5.7 10*3/uL (2.3-7.9); NEUT % 65.8 % (47.0-73.0); PLATELET COUNT AUTOMATED 268 10*3/uL (130-400); RED BLOOD COUNT 3.27 10*6/uL (4.10-5.10); RED CELL DISTRI WIDTH 12.4 % (0-14.5); WHITE BLOOD COUNT 8.6 10*3/uL (4.8-10.8)
[2023-05-16 19:55] LABS: ALKALINE PHOSPHATASE 111 U/L (46-116); CHLORIDE 100 mmol/L (98-107); POTASSIUM 3.6 mmol/L (3.4-5.1); TOTAL PROTEIN 8.1 gm/dL (6.0-8.0)
[2023-05-16 20:00] LABS: BUN < 5 mg/dl (9-23); SGPT/ALT < 7 U/L (10-49)
[2023-05-16] MEDS ORDERED: CIPRO500 MG PO (22:00)
[2023-05-16] MEDS ORDERED: CLINDAMYCIN HC300 MG PO (22:00)
== END 2023-05-16 22:08 | disposition home or self-care (01) ==
LOC: ED 16:54
PROVIDERS: Internal Medicine
DX: M00.9 Pyogenic arthritis, unspecified (principal); L03.115 Cellulitis of right lower limb; M10.9 Gout, unspecified; K21.9 Gastro-esophageal reflux disease without esophagitis; Z98.890 Other specified postprocedural states

== ENCOUNTER 2023-05-17 12:09 | Emergency (ER) | payer OTHER ==
[~2023-05-17] VITALS: Ht 170.1 cm; Wt 82.6 kg
[~2023-05-17 12:09] MED LIST changes: +ALLOPURINOL100 MG PO; +CELECOXIB100 M1 PO; +CIPRO500 MG PO; +CLINDAMYCIN HC300 MG PO
[2023-05-17 13:03] LABS: BASO % 0.5 % (0.0-1.0); EOS # 0.1 10*3/uL (0.0-0.4); EOS % 1.3 % (1.0-4.0); HEMATOCRIT 30.8 % (37.0-47.0); LYMPH # 1.5 10*3/uL (1.3-4.4); LYMPH % 18.9 % (27.0-41.0); MEAN CORPUSCULAR HGB 33.4 pg (27.0-31.0); MEAN CORPUSCULAR HGB CONC 32.5 g/dl (33.0-37.0); MEAN PLATELET VOLUME 8.6 fl (9.6-12.3); MONO % 12.7 % (3.0-9.0); NEUT # 5.2 10*3/uL (2.3-7.9); PLATELET COUNT AUTOMATED 245 10*3/uL (130-400); RED BLOOD COUNT 2.99 10*6/uL (4.10-5.10); RED CELL DISTRI WIDTH 12.6 % (0-14.5); WHITE BLOOD COUNT 7.9 10*3/uL (4.8-10.8)
[2023-05-17 13:23] LABS: ALKALINE PHOSPHATASE 107 U/L (46-116); BUN 7 mg/dl (9-23); CHLORIDE 100 mmol/L (98-107); POTASSIUM 3.3 mmol/L (3.4-5.1); TOTAL PROTEIN 7.8 gm/dL (6.0-8.0)
[2023-05-17 13:25] LABS: SGPT/ALT < 7 U/L (10-49)
[2023-05-17 20:00] VITALS: BP 153/54
== END 2023-05-17 20:50 | disposition short-term general hospital (02) ==
LOC: ED 12:09
PROVIDERS: Nurse Practitioner
DX: M00.9 Pyogenic arthritis, unspecified (principal); M10.9 Gout, unspecified; K21.9 Gastro-esophageal reflux disease without esophagitis; G62.9 Polyneuropathy, unspecified; Z98.890 Other specified postprocedural states

== ENCOUNTER → 2023-07-15 | Outpatient (CLI) | payer OTHER ==
[2023-07-15 11:25] LABS: BASO % 0.9 % (0.0-1.0); EOS # 0.2 10*3/uL (0.0-0.4); EOS % 4.2 % (1.0-4.0); HEMATOCRIT 35.2 % (37.0-47.0); MEAN CELL VOLUME 98.3 fl (81.0-99.0); MEAN CORPUSCULAR HGB 31.3 pg (27.0-31.0); MEAN CORPUSCULAR HGB CONC 31.8 g/dl (33.0-37.0); MEAN PLATELET VOLUME 9.2 fl (9.6-12.3); MONO # 0.4 10*3/uL (0.1-1.0); MONO % 8.7 % (3.0-9.0); NEUT # 1.7 10*3/uL (2.3-7.9); NEUT % 39.7 % (47.0-73.0); PLATELET COUNT AUTOMATED 192 10*3/uL (130-400); RED BLOOD COUNT 3.58 10*6/uL (4.10-5.10); RED CELL DISTRI WIDTH 14.3 % (0-14.5); WHITE BLOOD COUNT 4.3 10*3/uL (4.8-10.8)
[2023-07-15 11:41] LABS: ALKALINE PHOSPHATASE 90 U/L (46-116); BUN 7 mg/dl (9-23); CHLORIDE 106 mmol/L (98-107); POTASSIUM 3.8 mmol/L (3.4-5.1); TOTAL PROTEIN 7.2 gm/dL (6.0-8.0)
[2023-07-15 11:42] LABS: SGPT/ALT < 7 U/L (5-49)
== END | disposition home or self-care (01) ==
LOC: LAB 10:04 → RAD 10:30
PROVIDERS: Internal Medicine Infectious Disease; ATTEND Family Medicine
DX: M81.0 Age-related osteoporosis without current pathological fracture (principal); R78.81 Bacteremia; Z96.642 Presence of left artificial hip joint

== ENCOUNTER → 2023-08-01 | Outpatient (CLI) | payer OTHER | END | disposition home or self-care (01) | LOC: MAMMO 00:47 | PROVIDERS: ATTEND Family Medicine | DX: Z12.31 Encounter for screening mammogram for malignant neoplasm of breast (principal) ==

== ENCOUNTER → 2023-10-22 | Outpatient (CLI) | payer OTHER ==
[2023-10-22 08:45] LABS: HEMATOCRIT 38.7 % (37.0-47.0); MEAN CELL VOLUME 100.5 fl (81.0-99.0); MEAN CORPUSCULAR HGB CONC 32.8 g/dl (33.0-37.0); MEAN PLATELET VOLUME 9.2 fl (9.6-12.3); RED BLOOD COUNT 3.85 10*6/uL (4.10-5.10); WHITE BLOOD COUNT 3.2 10*3/uL (4.8-10.8)
[2023-10-22 09:21] LABS: ALKALINE PHOSPHATASE 84 U/L (46-116); BUN 7 mg/dl (9-23); CHLORIDE 100 mmol/L (98-107); CHOLESTEROL 224 mg/dL (<200); FREE T4 0.89 ng/dl (0.89-1.76); LDL CHOLESTEROL 111 mg/dL (9-159); POTASSIUM 4.2 mmol/L (3.4-5.1); SGPT/ALT 26 U/L (5-49); TOTAL PROTEIN 8.2 gm/dL (6.0-8.0); TRIGLYCERIDES 334 mg/dl (<150)
[2023-10-22 09:24] LABS: VITAMIN D, 25-HYDROXY 63.5 ng/mL (30-100)
== END | disposition home or self-care (01) ==
LOC: LAB 08:11
PROVIDERS: ATTEND Family Medicine
DX: I10 Essential (primary) hypertension (principal); E55.9 Vitamin D deficiency, unspecified; E74.9 Disorder of carbohydrate metabolism, unspecified; K21.9 Gastro-esophageal reflux disease without esophagitis; R53.83 Other fatigue; G62.9 Polyneuropathy, unspecified; R63.5 Abnormal weight gain; Z86.2 Personal history of diseases of the blood and blood-forming organs and certain disorders involving the immune mechanism

== ENCOUNTER → 2024-01-23 | Outpatient (CLI) | payer OTHER ==
[2024-01-23 08:49] LABS: HEMATOCRIT 35.6 % (37.0-47.0); MEAN CELL VOLUME 104.7 fl (81.0-99.0); MEAN CORPUSCULAR HGB 34.4 pg (27.0-31.0); MEAN CORPUSCULAR HGB CONC 32.9 g/dl (33.0-37.0); MEAN PLATELET VOLUME 9.6 fl (9.6-12.3); RED BLOOD COUNT 3.4 10*6/uL (4.10-5.10); RED CELL DISTRI WIDTH 12.6 % (0-14.5); WHITE BLOOD COUNT 4.6 10*3/uL (4.8-10.8)
[2024-01-23 09:14] LABS: ALKALINE PHOSPHATASE 75 U/L (46-116); BUN 7 mg/dl (9-23); CHLORIDE 102 mmol/L (98-107); CHOLESTEROL 210 mg/dL (<200); CPK 107 U/L (34-171); LDL CHOLESTEROL 133 mg/dL (9-159); POTASSIUM 3.7 mmol/L (3.4-5.1); SGPT/ALT 13 U/L (5-49); TOTAL PROTEIN 7.4 gm/dL (6.0-8.0); TRIGLYCERIDES 160 mg/dl (<150)
== END | disposition home or self-care (01) ==
LOC: LAB 08:01
PROVIDERS: ATTEND Family Medicine
DX: E78.00 Pure hypercholesterolemia, unspecified (principal); K21.9 Gastro-esophageal reflux disease without esophagitis; E74.9 Disorder of carbohydrate metabolism, unspecified; R60.0 Localized edema

== ENCOUNTER → 2024-09-16 | Outpatient (CLI) | payer OTHER | END | disposition home or self-care (01) | LOC: ORTHO 01:48 | PROVIDERS: ATTEND Orthopaedic Surgery | DX: M20.12 Hallux valgus (acquired), left foot (principal); M79.672 Pain in left foot; M85.872 Other specified disorders of bone density and structure, left ankle and foot ==

== ENCOUNTER → 2025-08-07 | Outpatient (CLI) | payer OTHER | END | disposition home or self-care (01) | LOC: RAD 10:31 | PROVIDERS: ATTEND Family Medicine | DX: I51.7 Cardiomegaly (principal); R05.9 Cough, unspecified; R06.2 Wheezing ==